=== PATIENT | female | born 1980 | race Two or more races ===

== ENCOUNTER 2017-09-21 12:37 | Emergency (ER) | payer SELFPAY ==
[2017-09-21 13:37] LABS: Hematocrit 36 % (35-47); Hemoglobin 11.9 g/dl (12.0-16.0); Mean Corpuscular HGB Conc 33 g/dl (31-36); Mean Corpuscular Hemoglobin 26 pg (27-31); Mean Corpuscular Volume 79 fL (80-97); Mean Platelet Volume 10 um3 (7.4-10.4); Red Cell Distribution Width 15 % (10.5-15); White Blood Count 3.9 10^3/ul (3.5-10.8)
[2017-09-21] MEDS ORDERED: NS 0.9% 1000 ML* 1,000 ML IV ONE (13:42)
[2017-09-21] MEDS ORDERED: Meclizine TAB* 12.5 MG PO ONE (13:42)
[2017-09-21] MEDS ORDERED: Ondansetron INJ* 2 MG/ML VIAL IV ONE (13:42)
[2017-09-21 13:47] LABS: Urine Bacteria Absent (Absent); Urine Bilirubin Negative (Negative); Urine Glucose Negative (Negative); Urine Nitrite Negative (Negative)
[2017-09-21 13:51] LABS: Troponin I 0.01 ng/mL (<0.04)
[2017-09-21 13:52] LABS: ALT 11 U/L (7-52); AST 14 U/L (13-39); Albumin 3.9 g/dL (3.2-5.2); Alkaline Phosphatase 52 U/L (34-104); Anion Gap 6 mmol/L (2-11); BUN/Creatinine Ratio 18.8 (8-20); Blood Urea Nitrogen 12 mg/dL (6-24); CO2 Carbon Dioxide 26 mmol/L (22-32); Calcium 9.3 mg/dL (8.6-10.3); Chloride 104 mmol/L (101-111); Globulin 3.1 g/dL (2-4); Glucose 88 mg/dL (70-100); Magnesium 1.8 mg/dL (1.9-2.7); Potassium 3.6 mmol/L (3.5-5.0); Sodium 136 mmol/L (133-145)
[2017-09-21 14:23] LABS: TSH (Thyroid Stimulating Horm) 1.44 mcIU/mL (0.34-5.60)
--- NOTE | 2017-09-21 14:27 | RAD ---
Indication: Syncope. Single frontal view of the chest performed at 1320 hours was reviewed. No prior study is available for comparison. No mediastinal shift is noted. Heart is of normal size and configuration. Lung wilde appear clear. IMPRESSION: NO ACTIVE CARDIOPULMONARY DISEASE IS NOTED.
[2017-09-21] MEDS ORDERED: Iohexol 350* (CONTRAST) 500 ML MDV IV ONE (14:36)
--- NOTE | 2017-09-21 15:29 | RAD ---
HISTORY: Syncope, fall, neck pain COMPARISONS: None TECHNIQUE: Multiple contiguous axial CT scans were obtained of the cervical spine without intravenous contrast, with coronal and sagittal multiplanar reformations. FINDINGS: BRAIN: The visualized brain is unremarkable CENTRAL CANAL: Evaluation of the central canal is limited on CT technique; however, there is no obvious canalicular mass or epidural hemorrhage. ALIGNMENT: There is straightening of the cervical lordosis. VERTEBRAL BODIES: The odontoid process is intact. The atlantoaxial intervals are symmetric. The vertebral bodies are normal in attenuation, without fracture. Incidentally noted are small dysraphic defects of the T1 vertebral body and of the C1 vertebral body. JOINTS: There is no subluxation or dislocation. MUSCULATURE: Unremarkable INTERVERTEBRAL DISCS: There is diffuse loss of intervertebral disc height. AXIAL IMAGES: C2-C3: There is no osseous neural foraminal narrowing or central canal stenosis. C3-C4: There is no osseous neural foraminal narrowing or central canal stenosis. C4-C5: There is no osseous neural foraminal narrowing or central canal stenosis. C5-C6: There is no osseous neural foraminal narrowing or central canal stenosis. C6-C7: There is no osseous neural foraminal narrowing or central canal stenosis. C7-T1: There is no osseous neural foraminal narrowing or central canal stenosis. SOFT TISSUES: The visualized soft tissues of the neck are unremarkable. The prevertebral fat stripe is preserved. OTHER: None. IMPRESSION: NO ACUTE OSSEOUS INJURY TO THE CERVICAL SPINE
--- NOTE | 2017-09-21 15:29 | RAD ---
HISTORY: Syncope, fall, headache COMPARISONS: None TECHNIQUE: Multiple contiguous axial CT scans were obtained of the head without intravenous contrast. FINDINGS: HEMORRHAGE/INFARCT: There is no hemorrhage or acute infarct. MASSES/SHIFT: There is no mass or shift. EXTRA-AXIAL SPACES: There are no extra-axial fluid collections. SULCI AND VENTRICLES: The sulci and ventricles are normal in size and position for the patient's stated age. CEREBRUM: There are no focal parenchymal abnormalities. BRAINSTEM: There are no focal parenchymal abnormalities. CEREBELLUM: There are no focal parenchymal abnormalities. VESSELS: The vessels are grossly normal. PARANASAL SINUSES: The paranasal sinuses are clear. ORBITS: The orbits are unremarkable. BONES AND SOFT TISSUE: No bone or soft tissue abnormalities are noted. OTHER: None IMPRESSION: NO ACUTE INTRACRANIAL PATHOLOGY.
--- NOTE | 2017-09-21 15:32 | RAD ---
HISTORY: Syncope, fall, headache, neck pain COMPARISONS: None TECHNIQUE: Multiple contiguous axial CT scans were obtained of the head and neck After the administration of nonionic intravenous contrast timed to the systemic arterial phase of contrast enhancement. Coronal and sagittal multiplanar reformations are submitted for review. Multiple 3-D maximum intensity projection reconstructions are also submitted for review. FINDINGS: CTA NECK: AORTIC ARCH: There is a normal three-vessel branching pattern of the aortic arch. There is no ostial or proximal stenosis of the cephalic great vessels. RIGHT VERTEBRAL ARTERY: The right vertebral artery is patent along its course, without stenosis. LEFT VERTEBRAL ARTERY: Evaluation of the left vertebral artery origin is limited by streak artifact from the contrast column. DOMINANCE: The vertebral arteries are codominant. RIGHT COMMON CAROTID ARTERY: The right common carotid artery is patent. The right carotid bifurcation occurs at C3-C4 RIGHT INTERNAL CAROTID ARTERY: There is no right internal carotid artery stenosis by NASCET criteria. There is no appreciable intimal flap or significant aneurysm formation to suggest dissection. RIGHT EXTERNAL CAROTID ARTERY: The right external carotid artery is unremarkable. LEFT COMMON CAROTID ARTERY: The left common carotid artery is patent. The left carotid bifurcation occurs at C3-C4 LEFT INTERNAL CAROTID ARTERY: There is no left internal carotid artery stenosis by NASCET criteria. There is no appreciable intimal flap or significant aneurysm formation to suggest dissection. LEFT EXTERNAL CAROTID ARTERY: The left external carotid artery is unremarkable. VENOUS CIRCULATION: The venous system is unremarkable. SALIVARY GLANDS: The parotid glands, submandibular glands, sublingual glands are normal. NASAL CAVITY/NASOPHARYNX: The nasal cavity and nasopharynx are normal. ORAL CAVITY/OROPHARYNX: The oral cavity is obscured by streak artifact from dental amalgam. The visualized oral cavity and oropharynx are unremarkable. LARYNGEAL APPARATUS/HYPOPHARYNX: The laryngeal apparatus and hypopharynx are normal. UPPER AIRWAY/UPPER ESOPHAGUS: The visualized upper airway and esophagus are normal. LUNG APICES: The lung apices are clear. THYROID GLAND: The thyroid gland is normal. LYMPH NODES: There is no lymphadenopathy by size criteria. BONES AND SOFT TISSUES: Incidentally noted are small dysraphic defects of C1 and T1 CTA HEAD: INTRACRANIAL CIRCULATION: There is no aneurysm, vascular malformation, occlusion, or stenosis of the visualized intracranial circulation. The anterior communicating artery complex is clear. Bilateral posterior communicating arteries are identified. VENOUS CIRCULATION: The venous system is unremarkable. PERFUSION: There is no obvious parenchymal perfusion deficit. HEMORRHAGE/INFARCT: There is no hemorrhage or acute infarct. MASSES/SHIFT: There is no mass or shift. EXTRA-AXIAL SPACES: There are no extra-axial fluid collections. SULCI AND VENTRICLES: The sulci and ventricles are normal in size and position for the patient's stated age. CEREBRUM: There are no focal parenchymal abnormalities. BRAINSTEM: There are no focal parenchymal abnormalities. CEREBELLUM: There are no focal parenchymal abnormalities. PARANASAL SINUSES: The paranasal sinuses are clear. ORBITS: The orbits are unremarkable. BONES AND SOFT TISSUE: No bone or soft tissue abnormalities are noted. OTHER: There is no abnormal enhancement. IMPRESSION: 1. NO INTERNAL CAROTID ARTERY STENOSIS BY NASCET CRITERIA. 2. NO ANEURYSM, VASCULAR MALFORMATION, OCCLUSION, OR STENOSIS OF THE VISUALIZED INTRACRANIAL CIRCULATION.. CPT II Codes: 3100F
--- NOTE | 2017-09-21 15:32 | RAD ---
INDICATION: Trauma, back pain. COMPARISON: There are no prior studies available for comparison. TECHNIQUE: Contiguous axial sections were obtained beginning above the T12 vertebra and continuing through the L5-S1 disc space. Images were reconstructed in the sagittal and coronal planes. FINDINGS: There is a mild lumbar scoliosis convex toward the right side. The vertebra are otherwise in normal alignment. No fracture is seen. There is no evidence for significant disc bulge or herniation. There is no evidence for spinal canal narrowing. There are prominent bilateral extrarenal pelvises likely representing normal variation. IMPRESSION: NO EVIDENCE FOR FRACTURE.
[2017-09-21] MEDS ORDERED: Acetaminophen TAB* 325 MG PO ONE (16:35)
[2017-09-21 16:47] VITALS: BP 108/71
--- NOTE | 2017-09-21 16:52 | ED ---
Polo Day Alfonso, scribed for Kymberly Cartagena MD on 09/21/17 at 1342 . Syncope/Near Syncope - HPI Summary HPI Summary: This patient is a 37 year old F BIBA to [facility] with a chief complaint of a syncopal episode while in an [place] class earlier today. She hit her head during the LOC. She reports having two other similar episodes in the last 3 months. The patient rates the aching pain 6/10 in severity. Symptoms aggravated by nothing. Symptoms alleviated by spontaneous resolution. Patient reports dizziness, headache, neck pain, and low back pain. Patient denies hearing loss, tinnitus, and cough. - History Of Current Complaint Chief Complaint: EDSyncope Time Seen by Provider: 09/21/17 13:04 Hx Obtained From: Patient Onset/Duration: Sudden Onset, Resolved, Other - earlier today Timing: Constant Context: Loss Of Consciousness Activity At Onset: Other - [place]ian class Associated Head Trauma: Yes Aggravating Factor(s): Nothing Alleviating Factor(s): Spontaneous Resolution Associated Signs And Symptoms: Other - dizziness, headache, neck pain, and low back pain. Patient denies hearing loss, tinnitus, and cough. Frequency: Ongoing Incidents Of Syncope For (in Mins/Days/Weeks/Years) - 3rd in 3 months - Allergies/Home Medications Allergies/Adverse Reactions: Allergies Allergy/AdvReac Type Severity Reaction Status Date / Time No Known Allergies Allergy Verified 09/21/17 12:51 Home Medications: Home Medications Ibuprofen [Advil] 400 mg PO BID PRN 09/21/17 [History Confirmed 09/21/17] Multiple Vitamins W/ Minerals [Multi-Vitamin Gummies] 2 chw PO DAILY 09/21/17 [ History Confirmed 09/21/17] Vitamin B Complex TAB* [Complex B-100*] 1 tab PO DAILY 09/21/17 [History Confirmed 09/21/17] PMH/Surg Hx/FS Hx/Imm Hx Opthamlomology History: Denies: Hx Legally Blind EENT History: Denies: Hx Deafness Infectious Disease History: No Infectious Disease History: Denies: Traveled Outside the [place] in Last 30 Days - Family History Known Family History: Positive: Cardiac Disease, Hypertension, Other - Cancer - Social History Lives: With Family Alcohol Use: None Substance Use Type: Reports: None Smoking Status (MU): Never Smoked Tobacco Review of Systems Negative: Fever Positive: Other - Negative hearing loss and tinnitus Negative: Cough Positive: Other - neck pain, and low back pain Neurological: Other - syncope, head trauma, dizziness, headache All Other Systems Reviewed And Are Negative: Yes Physical Exam - Summary Physical Exam Summary: General: Well appearing, no pain distress Skin: Warm, Skin Color Reflects Adequate Perfusion, Dry Eyes: EOMI, ANA ENT: Pharynx normal, TMs normal Neck: Supple, nontender Respiratory: CTA, breath sounds present, no rhonchi, no wheezes, no rales Cardiovascular: RRR, no murmur, no rub, no gallop Abdomen: Soft, nontender, Non-distended, no guarding, no rebound Bowel: Present Musculoskeletal: GISELLE, No edema, C-Collar applied Neuro: Sensory/motor intact, A&Ox3, CN intact 2-12 Psych: Affect/mood appropriate Triage Information Reviewed: Yes Vital Signs On Initial Exam: Initial Vitals Temp Pulse Resp BP Pulse Ox 98.3 F 61 15 112/72 100 09/21/17 12:49 09/21/17 12:49 09/21/17 12:49 09/21/17 12:49 09/21/17 12:49 Vital Signs Reviewed: Yes - Hume Coma Scale Coma Scale Total: 15 Diagnostics - Vital Signs Vital Signs Temp Pulse Resp BP Pulse Ox 09/21/17 13:31 100 09/21/17 13:00 54 15 101/62 99 09/21/17 12:51 66 100 09/21/17 12:50 112/72 09/21/17 12:49 98.3 F 61 15 112/72 100 - Laboratory Lab Results: Lab Results 09/21/17 09/21/17 09/21/17 Range/Units 13:15 13:15 13:27 WBC 3.9 (3.5-10.8) 10^3/ul RBC 4.50 (4.0-5.4) 10^6/ul Hgb 11.9 L (12.0-16.0) g/dl Hct 36 (35-47) % MCV 79 L (80-97) fL MCH 26 L (27-31) pg MCHC 33 (31-36) g/dl RDW 15 (10.5-15) % Plt Count 142 L (150-450) 10^3/ul MPV 10 (7.4-10.4) um3 Neut % (Auto) 49.5 (38-83) % Lymph % (Auto) 36.6 (25-47) % Wallace % (Auto) 11.1 H (1-9) % Eos % (Auto) 2.2 (0-6) % Baso % (Auto) 0.6 (0-2) % Absolute Neuts (auto) 2.0 (1.5-7.7) 10^3/ul Absolute Lymphs (auto) 1.4 (1.0-4.8) 10^3/ul Absolute Monos (auto) 0.4 (0-0.8) 10^3/ul Absolute Eos (auto) 0.1 (0-0.6) 10^3/ul Absolute Basos (auto) 0 (0-0.2) 10^3/ul Absolute Nucleated RBC 0 10^3/ul Nucleated RBC % 0.1 Sodium 136 (133-145) mmol/L Potassium 3.6 (3.5-5.0) mmol/L Chloride 104 (101-111) mmol/L Carbon Dioxide 26 (22-32) mmol/L Anion Gap 6 (2-11) mmol/L BUN 12 (6-24) mg/dL Creatinine 0.64 (0.51-0.95) mg/dL Est GFR ( Amer) 135.0 (>60) Est GFR (Non-Af Amer) 105.0 (>60) BUN/Creatinine Ratio 18.8 (8-20) Glucose 88 (70-100) mg/dL Calcium 9.3 (8.6-10.3) mg/dL Magnesium 1.8 L (1.9-2.7) mg/dL Total Bilirubin 0.50 (0.2-1.0) mg/dL AST 14 (13-39) U/L ALT 11 (7-52) U/L Alkaline Phosphatase 52 (34-104) U/L Troponin I 0.01 (<0.04) ng/mL Total Protein 7.0 (6.4-8.9) g/dL Albumin 3.9 (3.2-5.2) g/dL Globulin 3.1 (2-4) g/dL Albumin/Globulin Ratio 1.3 (1-3) TSH 1.44 (0.34-5.60) mcIU/mL Beta HCG, Quant < 0.60 mIU/mL Urine Color Yellow Urine Appearance Clear Urine pH 6.0 (5-9) Ur Specific [place] 1.009 L (1.010-1.030) Urine Protein Negative (Negative) Urine Ketones Negative (Negative) Urine Blood Negative (Negative) Urine Nitrate Negative (Negative) Urine Bilirubin Negative (Negative) Urine Urobilinogen Negative (Negative) Ur Leukocyte Esterase Trace H (Negative) Urine WBC (Auto) Trace(0-5/hpf) (Absent) Urine RBC (Auto) 1+(3-5/hpf) H (Absent) Ur Squamous Epith Cells Present H (Absent) Urine Bacteria Absent (Absent) Urine Glucose Negative (Negative) Result Diagrams: 09/21/17 13:15 09/21/17 13:15 Lab Statement: Any lab studies that have been ordered have been reviewed, and results considered in the medical decision making process. - Radiology CXR Radiology Interpretation Completed By: Radiologist - NO ACTIVE CARDIOPULMONARY DISEASE IS NOTED. ED physician has reviewed this radiology report and agrees. - CT CTA Head CT Interpretation Completed By: Radiologist - 1. NO INTERNAL CAROTID ARTERY STENOSIS BY NASCET CRITERIA. 2. NO ANEURYSM, VASCULAR MALFORMATION, OCCLUSION, OR STENOSIS OF THE VISUALIZED INTRACRANIAL CIRCULATION. ED physician has reviewed this radiology report and agrees. CT Brain CT Interpretation Completed By: Radiologist - NO ACUTE INTRACRANIAL PATHOLOGY. ED physician has reviewed this radiology report and agrees. CT C-Spine CT Interpretation Completed By: Radiologist - NO ACUTE OSSEOUS INJURY TO THE CERVICAL SPINE. ED physician has reviewed this radiology report and agrees. CT L-Spine CT Interpretation Completed By: Radiologist - NO EVIDENCE FOR FRACTURE. ED physician has reviewed this radiology report and agrees. - EKG 1326 Cardiac Rate: NL - BPM 65 EKG Rhythm: Sinus Rhythm EKG Interpretation: NAC Course/Dx Course Of Treatment: 37 yo female with vertigo and fainting. labs ct's all normal long discussion with pt and family will do close f/u with [facility] - Diagnoses Provider Diagnoses: Vertigo Discharge - Discharge Plan Condition: Stable Disposition: HOME Prescriptions: Meclizine TAB* [Antivert 12.5 TAB*] 25 mg PO TID PRN #12 tab PRN Reason: Vertigo Patient Education Materials: Vertigo (ED) Referrals: Cristina Lance MD [Primary Care Provider] - 3 Days Additional Instructions: RETURN TO THE EMERGENCY DEPARTMENT FOR CHANGING OR WORSENING SYMPTOMS. The documentation as recorded by the Polo reis Alfonso accurately reflects the service I personally performed and the decisions made by me, Kymberly Cartagena MD.
== END 2017-09-21 17:01 | disposition home or self-care (01) ==
LOC: ED 12:37
DX: R42 Dizziness and giddiness (principal)
CPT/HCPCS: 36415; 70450; 70496; 70498; 71010; 72125; 72131; 80053; 81003; 81015; 83735; 84443; 84484; 84702; 85025; 87086; 93005; 96360; 96374; 96375; 99283; A9270-GY; J2405; Q9967

== ENCOUNTER 2018-01-05 17:58 | Emergency (ER) | payer OTHER ==
--- NOTE | 2018-01-05 18:57 | RAD ---
INDICATION: Intracranial injury COMPARISON: CT brain September 21, 2017 TECHNIQUE: Noncontrast axial source images were acquired from the skull base to the vertex. FINDINGS: Ventricles/sulci: The ventricles and cisterns are normal in size and configuration for age. Brain parenchyma: There is no focal parenchymal finding, evidence of intracranial mass, or intracranial mass effect. Intracranial hemorrhage:None. Extra-axial spaces: There are no abnormal extra axial fluid collections or evidence of extra-axial mass. Calvarium: There is no calvarial fracture or other calvarial abnormality. Scalp: There is no evidence of scalp or extracalvarial soft tissue abnormality. Paranasal sinuses/mastoid: The paranasal sinuses and mastoid air cells are clear. Other: None. IMPRESSION: NO ACUTE INTRACRANIAL FINDINGS.
[2018-01-05 19:11] LABS: ABS Basophils 0 10^3/ul (0-0.2); ABS Eosinophils 0.1 10^3/ul (0-0.6); ABS Lymphocytes 1.5 10^3/ul (1.0-4.8); ABS Monocytes 0.3 10^3/ul (0-0.8); ABS Neutrophils 3.2 10^3/ul (1.5-7.7); ABS Nucleated RBC 0 10^3/ul; Eosinophil % 1.3 % (0-6); Hematocrit 38 % (35-47); Hemoglobin 12.7 g/dl (12.0-16.0); Lymphocyte % 29.4 % (25-47); Mean Corpuscular HGB Conc 33 g/dl (31-36); Mean Corpuscular Hemoglobin 26 pg (27-31); Mean Corpuscular Volume 79 fL (80-97); Mean Platelet Volume 10 um3 (7.4-10.4); Nucleated Red Blood Cells % 0.2; Platelet Count 174 10^3/ul (150-450); Red Blood Count 4.84 10^6/ul (4.0-5.4); Red Cell Distribution Width 16 % (10.5-15); White Blood Count 5.1 10^3/ul (3.5-10.8)
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
--- NOTE | 2018-01-05 20:32 | RAD ---
INDICATION: Facial injury COMPARISON: None TECHNIQUE: Axial source images were acquired from the vertex of the mandible through the orbits. Coronal and sagittal reconstructed images were acquired. FINDINGS: Bones: There is no acute facial bone fracture. Orbits: The globes and intraconal structures appear intact. The optic nerves are symmetric. Extraocular muscles appear normal. There is no intraconal inflammatory change or retrobulbar mass.. Paranasal sinuses: There is minor ethmoid sinus mucosal thickening. Brain: There are no acute abnormalities of the visualized brain parenchyma. Soft tissues: Normal Other: None The visualized soft tissue elements about the neck appear normal. IMPRESSION: NO ACUTE FACIAL BONE FRACTURE.
[2018-01-05] MEDS: Ibuprofen TAB* 800 MG PO ONE (20:36)
[2018-01-05] MEDS: Ondansetron ODT TAB* 4 MG PO ONE (21:40)
[2018-01-05 23:35] VITALS: BP 117/77
== END 2018-01-05 22:07 | disposition home or self-care (01) ==
LOC: ED 17:58
DX: R51 Headache (principal); S06.0X1A Concussion with loss of consciousness of 30 minutes or less, initial encounter; W10.9XXA Fall (on) (from) unspecified stairs and steps, initial encounter; Y92.9 Unspecified place or not applicable; R55 Syncope and collapse
CPT/HCPCS: 36415; 70450; 70486; 80053; 83605; 83735; 84443; 84484; 85025; 93005; 99283; A9270-GY

== ENCOUNTER 2018-08-13 18:08 | Emergency (ER) | payer OTHER ==
[2018-08-13] MEDS ORDERED: NS 0.9% 1000 ML* 1,000 ML IV ONE (18:23)
--- NOTE | 2018-08-13 18:29 | ED ---
Neurological HPI - HPI Summary HPI Summary: This patient is a 38 year old F presenting to [facility] accompanied by with a chief complaint of R-sided numbness that began approximately 1 hour ago. Pt states that neurological deficit began status post fall. Pt states she fell between her bed and dresser, and hit the right side of her head. Pt states she lost consciousness. The patient rates the pain 8/10 in severity. Symptoms aggravated by nothing. Symptoms alleviated by nothing. Patient reports cold feeling in R hand and uneven smile. - History of Current Complaint Chief Complaint: EDNeurologicalDeficit Stated Complaint: SYNCOPE, HEAD RIGHT SIDE NUMBNESS Time Seen by Provider: 08/13/18 18:23 Hx Obtained From: Patient Onset/Duration: Sudden Onset, Started hours ago, Still Present Timing: Constant Onset Severity: Severe Current Severity: Severe Pain Intensity: 8 Pain Scale Used: 0-10 Numeric Character: Numbness/Tingling Episode Lasting: Unknown Number of Episodes: 1 Syncope Context: Witnessed Frequency: Episodes x___ - 1 Aggravating: Nothing Alleviating: Nothing - Allergy/Home Medications Allergies/Adverse Reactions: Allergies Allergy/AdvReac Type Severity Reaction Status Date / Time No Known Allergies Allergy Verified 09/21/17 12:51 PMH/Surg Hx/FS Hx/Imm Hx Previously Healthy: Yes Endocrine/Hematology History: Denies: Hx Anticoagulant Therapy, Hx Diabetes Cardiovascular History: Denies: Hx Hypertension Sensory History: Denies: Hx Legally Blind, Hx Deafness Opthamlomology History: Denies: Hx Legally Blind - Surgical History Surgery Procedure, Year, and Place: n/a Infectious Disease History: No Infectious Disease History: Denies: Traveled Outside the [place] in Last 30 Days - Family History Known Family History: Positive: Cardiac Disease, Hypertension, Other - Cancer - Social History Occupation: Unemployed Lives: With Family Alcohol Use: None Hx Substance Use: No Substance Use Type: Reports: None Hx Tobacco Use: No Smoking Status (MU): Never Smoked Tobacco Review of Systems Negative: Fever Neurological: Other - Positive cold feeling in R hand Positive: Numbness All Other Systems Reviewed And Are Negative: Yes Physical Exam - Summary Physical Exam Summary: GENERAL: Patient is a well-developed and nourished F who is lying comfortable in the stretcher. Patient is not in any acute respiratory distress. HEAD AND FACE: Normocephalic EYES: PERRLA, EOMI x 2. EARS: Hearing grossly intact. MOUTH: Oropharynx within normal limits. NECK: Supple, trachea is midline, no adenopathy, no JVD, no carotid bruit. CHEST: Symmetric, no tenderness at palpation LUNGS: Clear to auscultation bilaterally. No wheezing or crackles. CVS: Regular rate and rhythm, S1 and S2 present, no murmurs or gallops appreciated. ABDOMEN: Soft, non-tender. Bowel sounds are normal. No abdominal abnormal pulsations. EXTREMITIES: Full ROM in all major joints, no edema, no cyanosis or clubbing. Strength in RUE is 5/5 NEURO: Alert and oriented x 3. No acute neurological deficits. Speech is normal and follows commands. SKIN: Dry and warm Triage Information Reviewed: Yes Vital Signs On Initial Exam: Initial Vitals Temp Pulse Resp BP Pulse Ox 97 F 76 18 133/91 97 08/13/18 18:17 08/13/18 18:17 08/13/18 18:17 08/13/18 18:17 08/13/18 18:17 Vital Signs Reviewed: Yes Diagnostics - Vital Signs Vital Signs Temp Pulse Resp BP Pulse Ox 08/13/18 18:17 97 F 76 18 133/91 97 - Laboratory Result Diagrams: 08/13/18 19:05 08/13/18 19:05 Lab Statement: Any lab studies that have been ordered have been reviewed, and results considered in the medical decision making process. - CT Brain CT CT Interpretation Completed By: Radiologist - Brain CT reveals, per radiologist , no intracranial bleed, suspicious mass, or mass effect. Ventricles appear unremarkable. ED physician has reviewed this radiology report. - EKG 1840 Cardiac Rate: NL EKG Rhythm: Sinus Rhythm - 78 BPM EKG Interpretation: Nml axis Course/Dx - Course Course Of Treatment: This patient is a 38 year old F presenting to [facility] accompanied by with a chief complaint of R-sided numbness that began approximately 1 hour ago. I was called in triage, pt fell, hit her head, and lost consciousness. Pt was unable to move R side. I called a code mendoza on her. Pt was rushed to CT and then to room 3. Upon re-evaluation pt had full movement of her extremities. Upon further investigation, it was revealed that these symptoms have happened before. There was a language barrier. An EKG taken at 1840 reveals nml sinus rhythm at 78 BPM and nml axis. Brain CT reveals, per radiologist, no intracranial bleed, suspicious mass, or mass effect. Ventricles appear unremarkable. Pt will be signed out to Dr. Guillermo upon shift change pending lab work and disposition. Pt is agreeable with this plan. - Diagnoses Provider Diagnoses: Right sided weakness Discharge - Sign-Out/Discharge Documenting (check all that apply): Sign-Out Patient Signing out patient TO: Adryan Guillermo - Upon shift change pending lab work and disposition - Discharge Plan Condition: Good Disposition: HOME Patient Education Materials: Syncope (ED) Referrals: Jose Ellis DO [Primary Care Provider] - Additional Instructions: If the shoulder is really bothering you over the next few days you should return for an x ray. - Billing Disposition and Condition Condition: GOOD Disposition: Home - Attestation Statements Document Initiated by Scribe: Yes Documenting Scribe: Letty Bueno Provider For Whom Scribe is Documenting (Include Credential): Lalo Bai MD Scribe Attestation: I, Letty Bueno, scribed for Lalo Bai MD on 08/14/18 at 2352. Scribe Documentation Reviewed: Yes Provider Attestation: The documentation as recorded by the [email or web address] fraser accurately reflects the service I personally performed and the decisions made by me, Lalo Bai MD
--- NOTE | 2018-08-13 18:33 | RAD ---
EXAM: CT Head Without Intravenous Contrast CLINICAL HISTORY: 38 years old, female; Signs and symptoms; Weakness, extremity; Right; Additional info: Neurological changes/code tyler TECHNIQUE: Axial computed tomography images of the head/brain without intravenous contrast. All CT scans at this facility use at least one of these dose optimization techniques: automated exposure control; mA and/or kV adjustment per patient size (includes targeted exams where dose is matched to clinical indication); or iterative reconstruction. COMPARISON: No relevant prior studies available. FINDINGS: Brain: Unremarkable. No hemorrhage. No significant white matter disease. No edema. Ventricles: No intracranial bleed, suspicious mass, or mass effect. Ventricles appear unremarkable. Bones/joints: Unremarkable. No acute fracture. Soft tissues: Unremarkable. Sinuses: Unremarkable as visualized. No acute sinusitis. Mastoid air cells: Unremarkable as visualized. No mastoid effusion. IMPRESSION: No intracranial bleed, suspicious mass, or mass effect. Ventricles appear unremarkable.
[2018-08-13 19:13] LABS: ABS Basophils 0 10^3/ul (0-0.2); ABS Eosinophils 0 10^3/ul (0-0.6); ABS Lymphocytes 1.5 10^3/ul (1.0-4.8); ABS Monocytes 0.4 10^3/ul (0-0.8); ABS Neutrophils 2.5 10^3/ul (1.5-7.7); ABS Nucleated RBC 0 10^3/ul; Eosinophil % 0.1 % (0-6); Hematocrit 37 % (35-47); Hemoglobin 12.3 g/dl (12.0-16.0); Lymphocyte % 34.1 % (25-47); Mean Corpuscular HGB Conc 33 g/dl (31-36); Mean Corpuscular Hemoglobin 26 pg (27-31); Mean Corpuscular Volume 77 fL (80-97); Mean Platelet Volume 9.5 um3 (7.4-10.4); Nucleated Red Blood Cells % 0.1; Platelet Count 135 10^3/ul (150-450); Red Blood Count 4.81 10^6/ul (4.00-5.40); Red Cell Distribution Width 17 % (10.5-15); White Blood Count 4.5 10^3/ul (3.5-10.8)
[2018-08-13 19:20] LABS: INR 1.03 (0.77-1.02)
[2018-08-13] MEDS ORDERED: Ketorolac INJ* 30 MG/ML 1 ML VIAL IV PUSH ONE (19:37)
--- NOTE | 2018-08-13 19:42 | PN ---
Progress Note - Progress Note Date of Service: 08/13/18 Note: SIGN-OUT RECEIVED FROM DR. SHEPARD AT SHIFT CHANGE PENDING WORK-UP AND DISPO. AT 1939: ED PROVIDER AT BEDSIDE Pt is a 38 y/o F presenting to ED with c/o dizziness onset DIRECTOR INDEX while arguing with her . DIAGNOSTICS: COT: DX: DISPO: This is scribe, Andrei Holly, documenting for attending Dr. Adryan Guillermo MD. I, Dr. Guillermo, personally performed the services described in this documentation as scribed in my presence and it is both accurate and complete.
[2018-08-13] MEDS ORDERED: LORazepam TAB(*) 1 MG PO ONE (19:45)
[2018-08-13] MEDS ORDERED: Ibuprofen TAB* 400 MG PO ONE (19:46)
[2018-08-13 20:49] VITALS: BP 129/74
--- NOTE | 2018-08-14 07:58 | RAD ---
Indication: Neurologic changes, code tyler. Single frontal view of the chest performed at 1929 hours was reviewed. Comparison is made with previous exam dated September 21, 2017. No mediastinal shift is noted. Heart is of normal size and configuration. Lung wilde appear clear. IMPRESSION: NO ACTIVE CARDIOPULMONARY DISEASE IS NOTED. R1
== END 2018-08-13 20:50 | disposition home or self-care (01) ==
LOC: ED 18:08
DX: R55 Syncope and collapse (principal); R53.1 Weakness
CPT/HCPCS: 36415; 70450; 71045; 80053; 80061; 83605; 84484; 84702; 85025; 85610; 85730; 86850; 86900; 86901; 93005; 96374; 99283; A9270-GY

== ENCOUNTER 2019-07-30 18:44 | Observation (INO) | payer OTHER ==
[2019-07-30] MEDS ORDERED: Ondansetron ODT TAB* 4 MG PO ONE (19:56)
[2019-07-30] MEDS ORDERED: Acetaminophen TAB* 325 MG PO ONE (19:56)
[2019-07-30 19:57] LABS: ABS Lymphocytes 1.3 10^3/ul (1.0-4.8); ABS Monocytes 0.5 10^3/ul (0-0.8); ABS Neutrophils 5.8 10^3/ul (1.5-7.7); Hematocrit 35 % (35-47); Hemoglobin 11.6 g/dL (12.0-16.0); Lymphocyte % 17.2 %; Mean Corpuscular HGB Conc 33 g/dL (31-36); Mean Corpuscular Hemoglobin 25 pg (27-31); Mean Corpuscular Volume 75 fL (80-97); Mean Platelet Volume 9.3 fL (7.4-10.4); Nucleated Red Blood Cells % 0.1; Platelet Count 143 10^3/uL (150-450); Red Blood Count 4.65 10^6 /uL (3.70-4.87); Red Cell Distribution Width 17 % (10-15); White Blood Count 7.6 10^3/uL (3.5-10.8)
[2019-07-30 20:17] LABS: ALT 18 U/L (7-52); AST 15 U/L (13-39); Albumin 4.7 g/dL (3.2-5.2); Albumin/Globulin Ratio 1.5 (1-3); Alkaline Phosphatase 68 U/L (34-104); Anion Gap 8 mmol/L (2-11); BUN/Creatinine Ratio 19.4 (8-20); Blood Urea Nitrogen 14 mg/dL (6-24); CO2 Carbon Dioxide 23 mmol/L (22-32); Calcium 9.4 mg/dL (8.6-10.3); Chloride 104 mmol/L (101-111); EGFR African American 109.7 (>60); EGFR Non-African American 90.7 (>60); Globulin 3.2 g/dL (2-4); Glucose 105 mg/dL (70-100); Potassium 3.8 mmol/L (3.5-5.0); Sodium 135 mmol/L (135-145); Total Protein 7.9 g/dL (6.4-8.9)
[2019-07-30 20:23] LABS: HCG Pregnancy < 0.60 mIU/mL
[2019-07-30 20:30] LABS: Urine Appearance Clear; Urine Bacteria Absent (Absent); Urine Bilirubin Negative (Negative); Urine Blood Negative (Negative); Urine Color Yellow; Urine Glucose Negative (Negative); Urine Ketones Negative (Negative); Urine Nitrite Negative (Negative); Urine Protein Negative (Negative); Urine Red Blood Cell Absent (Absent); Urine Specific Gravity 1.018 (1.010-1.030); Urine Squamous Epithelial Cell Present (Absent); Urine Urobilinogen Negative (Negative); Urine White Blood Cell 1+(6-10/hpf) (Absent)
[2019-07-30 20:45] LABS: C Reactive Protein 46.03 mg/L (<8.01)
[2019-07-30] MEDS ORDERED: NS 0.9% 1000 ML** 1,000 ML IV ONE (22:46)
[2019-07-30] MEDS ORDERED: Ondansetron INJ* 2 MG/ML VIAL IV ONE (22:46)
[2019-07-30] MEDS ORDERED: Morphine 4 MG/ML VIAL (1 ml) 4 MG/ML VIAL IV ONE (22:46)
[2019-07-30] MEDS ORDERED: Ibuprofen ADULT LIQ* 600 MG/30 ML UDC PO ONE (22:48)
--- NOTE | 2019-07-30 22:48 | ED ---
Abdominal Pain/Female - HPI Summary HPI Summary: Patient complains of sudden onset right lower quadrant and right upper quadrant pain, low right-sided back pain, fever, chills, nausea starting 3 AM this morning. Patient states history of same pain every couple months. Patient has been diagnosed with "nervous stomach". Symptoms are worse with food and movement. Denies cough, sore throat, CP, SOB, V/D, change in urine, change in BM, vaginal symptoms. Medical history is TIA, syncope, migraines. Abdominal surgical history is none. - History of Current Complaint Chief Complaint: EDAbdPain Stated Complaint: ABD PAIN PER Time Seen by Provider: 07/30/19 22:36 Hx Obtained From: Patient, Family/Assistant Professor Of Art Onset/Duration: Sudden Onset, Lasting Hours Timing: Constant Severity Initially: Moderate Severity Currently: Severe Pain Intensity: 8 Pain Scale Used: 0-10 Numeric Location: Discrete At: RUQ, Discrete At: RLQ Radiates: Yes Radiates to: Back Character: Sharp, Dull, Cramping Aggravating Factor(s): Food, Movement Alleviating Factor(s): Nothing Associated Signs and Symptoms: Positive: Back Pain, Nausea Allergies/Adverse Reactions: Allergies Allergy/AdvReac Type Severity Reaction Status Date / Time No Known Allergies Allergy Verified 09/21/17 12:51 PMH/Surg Hx/FS Hx/Imm Hx Endocrine/Hematology History: Denies: Hx Anticoagulant Therapy, Hx Diabetes Cardiovascular History: Denies: Hx Hypertension History: Denies: Hx Dialysis Sensory History: Denies: Hx Legally Blind, Hx Deafness Opthamlomology History: Denies: Hx Legally Blind EENT History: Denies: Hx Deafness Neurological History: Denies: Hx Dementia - Surgical History Surgery Procedure, Year, and Place: n/a Infectious Disease History: No Infectious Disease History: Denies: Traveled Outside the [place] in Last 30 Days - Family History Known Family History: Positive: Cardiac Disease, Hypertension, Other - Cancer - Social History Alcohol Use: None Hx Substance Use: No Substance Use Type: Reports: None Hx Tobacco Use: No Smoking Status (MU): Never Smoked Tobacco Review of Systems Constitutional: Negative Eyes: Negative ENT: Negative Cardiovascular: Negative Respiratory: Negative Positive: Abdominal Pain, Nausea Genitourinary: Negative Musculoskeletal: Negative Skin: Negative Neurological: Negative Psychological: Normal All Other Systems Reviewed And Are Negative: Yes Physical Exam - Summary Physical Exam Summary: Patient tender to palpation right lower quadrant, right upper quadrant, suprapubically. Abdominal exam otherwise unremarkable. No pain with palpation of lower right-sided back. Triage Information Reviewed: Yes Vital Signs On Initial Exam: Initial Vitals Temp Pulse Resp BP Pulse Ox 99.4 F 97 18 126/77 100 07/30/19 18:50 07/30/19 18:50 07/30/19 18:50 07/30/19 18:50 07/30/19 18:50 Vital Signs Reviewed: Yes Appearance: Positive: Well-Appearing Skin: Positive: Warm Head/Face: Positive: Normal Head/Face Inspection Eyes: Positive: Normal Neck: Positive: Supple Respiratory/Lung Sounds: Positive: Clear to Auscultation Cardiovascular: Positive: Normal Abdomen Description: Positive: Other: Musculoskeletal: Positive: Normal Neurological: Positive: Normal Psychiatric: Positive: Normal AVPU Assessment: Alert - [place] Coma Scale Best Eye Response: 4 - Spontaneous Best Motor Response: 6 - Obeys Commands Best Verbal Response: 5 - Oriented Coma Scale Total: 15 Diagnostics - Vital Signs Vital Signs Temp Pulse Resp BP Pulse Ox 07/30/19 20:56 100.6 F 92 18 116/59 98 07/30/19 19:29 99.5 F 07/30/19 18:50 99.4 F 97 18 126/77 100 - Laboratory Lab Results: Lab Results 07/30/19 07/30/19 07/30/19 Range/Units 19:43 19:49 19:49 WBC 7.6 (3.5-10.8) 10^3/uL RBC 4.65 (3.70-4.87) 10^6 /uL Hgb 11.6 L (12.0-16.0) g/dL Hct 35 (35-47) % MCV 75 L (80-97) fL MCH 25 L (27-31) pg MCHC 33 (31-36) g/dL RDW 17 H (10-15) % Plt Count 143 L (150-450) 10^3/uL MPV 9.3 (7.4-10.4) fL Neut % (Auto) 76.2 % Lymph % (Auto) 17.2 % Mitchell % (Auto) 6.1 % Eos % (Auto) 0.0 % Baso % (Auto) 0.5 % Absolute Neuts (auto) 5.8 (1.5-7.7) 10^3/ul Absolute Lymphs (auto) 1.3 (1.0-4.8) 10^3/ul Absolute Monos (auto) 0.5 (0-0.8) 10^3/ul Absolute Eos (auto) 0.0 (0-0.6) 10^3/ul Absolute Basos (auto) 0.0 (0-0.2) 10^3/ul Absolute Nucleated RBC 0.0 10^3/ul Nucleated RBC % 0.1 Sodium 135 (135-145) mmol/L Potassium 3.8 (3.5-5.0) mmol/L Chloride 104 (101-111) mmol/L Carbon Dioxide 23 (22-32) mmol/L Anion Gap 8 (2-11) mmol/L BUN 14 (6-24) mg/dL Creatinine 0.72 (0.51-0.95) mg/dL Est GFR ( Amer) 109.7 (>60) Est GFR (Non-Af Amer) 90.7 (>60) BUN/Creatinine Ratio 19.4 (8-20) Glucose 105 H (70-100) mg/dL Lactic Acid 1.0 (0.5-2.0) mmol/L Calcium 9.4 (8.6-10.3) mg/dL Total Bilirubin 0.50 (0.2-1.0) mg/dL AST 15 (13-39) U/L ALT 18 (7-52) U/L Alkaline Phosphatase 68 (34-104) U/L C-Reactive Protein 46.03 H (<8.01) mg/L Total Protein 7.9 (6.4-8.9) g/dL Albumin 4.7 (3.2-5.2) g/dL Globulin 3.2 (2-4) g/dL Albumin/Globulin Ratio 1.5 (1-3) Lipase 74 (11.0-82.0) U/L Beta HCG, Quant < 0.60 mIU/mL Urine Color Urine Appearance Urine pH (5-9) Ur Specific [place] (1.010-1.030) Urine Protein (Negative) Urine Ketones (Negative) Urine Blood (Negative) Urine Nitrate (Negative) Urine Bilirubin (Negative) Urine Urobilinogen (Negative) Ur Leukocyte Esterase (Negative) Urine WBC (Auto) (Absent) Urine RBC (Auto) (Absent) Ur Squamous Epith Cells (Absent) Urine Bacteria (Absent) Urine Glucose (Negative) 07/30/19 Range/Units 19:55 WBC (3.5-10.8) 10^3/uL RBC (3.70-4.87) 10^6 /uL Hgb (12.0-16.0) g/dL Hct (35-47) % MCV (80-97) fL MCH (27-31) pg MCHC (31-36) g/dL RDW (10-15) % Plt Count (150-450) 10^3/uL MPV (7.4-10.4) fL Neut % (Auto) % Lymph % (Auto) % Mitchell % (Auto) % Eos % (Auto) % Baso % (Auto) % Absolute Neuts (auto) (1.5-7.7) 10^3/ul Absolute Lymphs (auto) (1.0-4.8) 10^3/ul Absolute Monos (auto) (0-0.8) 10^3/ul Absolute Eos (auto) (0-0.6) 10^3/ul Absolute Basos (auto) (0-0.2) 10^3/ul Absolute Nucleated RBC 10^3/ul Nucleated RBC % Sodium (135-145) mmol/L Potassium (3.5-5.0) mmol/L Chloride (101-111) mmol/L Carbon Dioxide (22-32) mmol/L Anion Gap (2-11) mmol/L BUN (6-24) mg/dL Creatinine (0.51-0.95) mg/dL Est GFR ( Amer) (>60) Est GFR (Non-Af Amer) (>60) BUN/Creatinine Ratio (8-20) Glucose (70-100) mg/dL Lactic Acid (0.5-2.0) mmol/L Calcium (8.6-10.3) mg/dL Total Bilirubin (0.2-1.0) mg/dL AST (13-39) U/L ALT (7-52) U/L Alkaline Phosphatase (34-104) U/L C-Reactive Protein (<8.01) mg/L Total Protein (6.4-8.9) g/dL Albumin (3.2-5.2) g/dL Globulin (2-4) g/dL Albumin/Globulin Ratio (1-3) Lipase (11.0-82.0) U/L Beta HCG, Quant mIU/mL Urine Color Yellow Urine Appearance Clear Urine pH 7.0 (5-9) Ur Specific [place] 1.018 (1.010-1.030) Urine Protein Negative (Negative) Urine Ketones Negative (Negative) Urine Blood Negative (Negative) Urine Nitrate Negative (Negative) Urine Bilirubin Negative (Negative) Urine Urobilinogen Negative (Negative) Ur Leukocyte Esterase 2+ A (Negative) Urine WBC (Auto) 1+(6-10/hpf) A (Absent) Urine RBC (Auto) Absent (Absent) Ur Squamous Epith Cells Present A (Absent) Urine Bacteria Absent (Absent) Urine Glucose Negative (Negative) Result Diagrams: 07/30/19 19:43 07/30/19 19:49 Lab Statement: Any lab studies that have been ordered have been reviewed, and results considered in the medical decision making process. Abdominal Pain Fem Course/Dx - Course Course Of Treatment: Patient complains of sudden onset right lower quadrant and right upper quadrant pain, low right-sided back pain, fever, chills, nausea starting 3 AM this morning. Patient states history of same pain every couple months. Patient has been diagnosed with "nervous stomach". Symptoms are worse with food and movement. Denies cough, sore throat, CP, SOB, V/D, change in urine, change in BM, vaginal symptoms. Medical history is TIA, syncope, migraines. Abdominal surgical history is none. Febrile at 100.9. Resolved with Tylenol. Heart rate between 90 and 100. Vital signs otherwise within normal limits. Labs unremarkable. Transvaginal ultrasound positive for hypoechoic lesions on both ovaries, likely ovarian cysts. Ultrasound of gallbladder positive for possible space-occupying lesion on liver, similar to 2018. CT abdomen and pelvis positive for possible early acute appendicitis. Admitted to surgery. - Diagnoses Provider Diagnoses: Ovarian cyst, Liver cyst Discharge ED - Sign-Out/Discharge Documenting (check all that apply): Patient Departure - Discharge Plan Condition: Stable Disposition: ADMITTED TO [facility] Referrals: Jose Ellis DO [Primary Care Provider] - - Billing Disposition and Condition Condition: STABLE Disposition: Admitted to [facility]
[2019-07-31] MEDS ORDERED: Iohexol 300* (CONTRAST) 10 ML SDV IV ONE ×2 (02:29→02:32)
[2019-07-31] MEDS ORDERED: NS 0.9% 1000 ML** 1,000 ML IV ONE (03:20)
[2019-07-31] MEDS ORDERED: Piperacillin/Tazobac ADVAN(*) 3.375 GM in NS 0.9% 100 ML* 100 ML IVPB ONE (03:54)
[2019-07-31] MEDS ORDERED: Acetaminophen TAB* 325 MG PO PRN (03:56)
[2019-07-31] MEDS ORDERED: Morphine 4 MG/ML VIAL (1 ml) 4 MG/ML VIAL IV ONE (04:00)
[2019-07-31] MEDS: HYDROmorphone INJ1* 1 MG/ML SYRINGE IV SLOW PU PRN ×3 (05:44→14:12)
[2019-07-31] MEDS: NS 0.9% 1000 ML** 1,000 ML IV SCH ×4 (05:48→19:09)
[2019-07-31] MEDS ORDERED: Influenza VAC *QUAD* 2019-20* 0.5 ML SYRINGE IM ONE (09:00)
--- NOTE | 2019-07-31 10:03 | HP ---
CC: [facility] ADMISSION HISTORY AND PHYSICAL: DATE OF ADMISSION: 07/31/19 REASON FOR ADMISSION: Right lower quadrant abdominal pain. HISTORY OF PRESENT ILLNESS: Ms. Jennifer Galindo is a very pleasant 39-year-old woman who around 3 o'clock in the morning on Tuesday a.m. woke up with right- sided abdominal discomfort. This was not associated with fever. She did not have anything unusual to eat the night before and the pain seemed to be worse with movement. She had no change in her urinary habits. She had no diarrhea or vaginal symptoms. She has a history of migraines. She has had no prior abdominal surgery in the past. She had no vomiting. In the emergency room, she was noted to be afebrile with stable vital signs. She had a white blood cell count, which was normal. She was noted to be anemic with a hemoglobin 11.6 with an MCV of 75. Electrolytes, BUN, and creatinine were normal. She had a C-reactive protein of 46 and a beta-hCG was negative. Lactic acid was 1.0. She underwent a right upper quadrant abdominal ultrasound, which shows mild several small gallstones with no evidence of gallbladder wall thickening, pericholecystic fluid or findings to suggest acute calculus cholecystitis. She also underwent a transvaginal ultrasound. This showed no free pelvic fluid. There were some complex structures in bilateral ovaries with some slight enlargement in the ovaries, but normal vascular flow seen in both with no evidence of torsion. These were hypoechoic lesions and [employer]PECTOR followup was recommended. I see no history of previous ovarian imaging. Subsequent to this, she underwent a CT scan of the abdomen and pelvis with both oral and IV contrast. These showed the bilateral ovarian masses as described above but also in addition shows an appendix at the upper normal limits at 7 mm with mild surrounding inflammatory change and some slightly enlarged lower quadrant lymph nodes concerning for early acute appendicitis. No extraluminal air, fluids, or abscess was noted. The patient has been admitted to the surgical service for further evaluation and care. PAST MEDICAL HISTORY: Migraine headaches. PAST SURGICAL HISTORY: Past abdominal surgery is none. MEDICATIONS: At home include: 1. Lexapro 10 mg daily. 2. Ibuprofen p.r.n. 3. Multivitamins. 4. Vitamin D. ALLERGIES: She has no known drug allergies. SOCIAL HISTORY: She is . She has 3 young children. She works and goes to school. Denies alcohol or tobacco use. REVIEW OF SYSTEMS: Otherwise unremarkable. PHYSICAL EXAMINATION GENERAL: She is a well-developed, slightly overweight female with normal attention to grooming. She is very pleasant and in no apparent distress. VITAL SIGNS: Temperature 97.9, pulse 70, blood pressure 109/69. LUNGS: Clear to auscultation with normal respiratory effort. HEART: Regular rate and rhythm without murmurs, rubs or gallops. ABDOMEN: Soft, slightly distended. She has hyperactive bowel sounds throughout. There are no prior surgical incisions or hernias. She has exquisite tenderness with voluntary guarding in the right lower quadrant. There is no right upper quadrant pain. I appreciate no suprapubic or left pelvic or right pelvic discomfort other than some mild discomfort in the right lower pelvis area. IMPRESSION: Right lower quadrant abdominal pain of 24 hours duration. She has a normal white count and no fever. Gallbladder ultrasound and vaginal ultrasound as described above. She does have some enlarged ovaries bilaterally and I see no previous imaging. She appears to be chronically anemic. She has no symptoms of left-sided abdominal pain and I believe that the ovarian findings are incidental and will require further workup. The concerning finding obviously is the CT scan with some inflammation surrounding the appendix and in conjunction with her exquisite right lower quadrant abdominal pain, I do believe that she has early acute appendicitis. I discussed all of these findings with her and I do recommend that she undergo a laparoscopic appendectomy today for treatment of her acute appendicitis. We discussed nonoperative management and at this point I do not recommend such an early course as she most likely could undergo surgery today and be discharged later if this is done at a reasonable hour. After our discussion, she would agree to proceed with surgery. PLAN: Laparoscopic appendectomy today. Procedure was discussed with the patient and the risks of, but not limited to, bleeding, infection, intraabdominal abscess formation, injury to peritoneal and retroperitoneal structures, possibly of an open procedure, possibility of other indicated surgical procedures necessary to be performed were discussed. In addition, the risks of blood clots and risks of general anesthesia were explained. 1. The patient has been admitted to the surgical service on the short stay unit. 2. She will be kept n.p.o. 3. IV antibiotics have been started. [id number]/[facility] #: [id number] [facility] HOSPITALChris
[2019-07-31] MEDS ORDERED: Bupivacaine 0.25% EPI 200,000* 30 ML SDV ONE (10:48)
[2019-07-31] MEDS ORDERED: ceFOXitin(*) 1 GM VIAL ONE (10:48)
[2019-07-31] MEDS ORDERED: Sodium Citrate/Citric Acid* 15 ML UDC ONE (10:51)
[2019-07-31] MEDS ORDERED: Lidocaine 2% PF * 5 ML VIAL ONE (10:57)
[2019-07-31] MEDS ORDERED: Propofol* 10 MG/ML 20 ML BTL ONE (10:57)
[2019-07-31] MEDS ORDERED: Rocuronium* 10 MG/ML VIAL ONE (10:58)
[2019-07-31] MEDS ORDERED: fentaNYL* 50 MCG/ML 2 ML VIAL (100 MCG VIAL) ONE ×4 (11:00→12:40)
[2019-07-31] MEDS ORDERED: ceFOXitin(*) 2 GM in NS 0.9% 100 ML* 100 ML IVPB ONE (11:00)
[2019-07-31] MEDS ORDERED: ceFOXitin(*) 2 GM in NS 0.9% 50 ML* 50 ML IVPB ONE (11:00)
[2019-07-31] MEDS ORDERED: Sugammadex * 200 MG/2 ML VIAL IV PUSH ONE (11:37)
[2019-07-31] MEDS ORDERED: Naloxone* 0.4 MG/ML 1 ML VIAL IV PRN (12:05)
[2019-07-31] MEDS: fentaNYL* 50 MCG/ML 2 ML VIAL (100 MCG VIAL) IV PRN ×4 (12:10→12:28)
[2019-07-31] MEDS ORDERED: diPHENhydraMINE IV* 50 MG/ML 1 ml VIAL (BENADRYL) ONE (12:48)
[2019-07-31] MEDS: HYDROcodone/ACETAMIN 5-325 MG* 1 TAB PO PRN ×2 (15:28→20:44)
[2019-07-31] MEDS ORDERED: Ondansetron INJ* 2 MG/ML VIAL IV PRN (15:45)
[2019-07-31] MEDS ORDERED: Ondansetron INJ* 2 MG/ML VIAL ONE (15:46)
[2019-07-31] MEDS: Ibuprofen TAB* 600 MG PO SCH ×2 (17:30→23:26)
--- NOTE | 2019-07-31 17:50 | BRIEFOPN ---
Brief Operative/Procedure Note - Operation Details Pre-Op Diagnosis: acute appendicitis Post-Op Diagnosis: same Procedures: laparoscopic appendectomy Surgeon(s)/Proceduralists: Nila Anesthesia: ELLA LEE Estimated Blood Loss: >10ML Findings: EARLY APPENDICITIS Specimen(s)/Culture(s) Description: APPENDIX Complications: NONE
--- NOTE | 2019-08-01 00:34 | OP ---
CC: Dr. Jose Ellis * DATE OF OPERATION: 07/31/19 - ROOM #331 DATE OF : 82 SURGEON: Alexis Dotson MD CARD CLOTHIER: None. ANESTHESIOLOGIST: Dr. Munson. ANESTHESIA: General endotracheal. PRE-OP DIAGNOSIS: Acute appendicitis. POST-OP DIAGNOSIS: Acute appendicitis. OPERATIVE PROCEDURE: Laparoscopic appendectomy. ESTIMATED BLOOD LOSS: Minimal. IV FLUIDS: Crystalloid. SPECIMEN: Appendix. DRAINS: None. COMPLICATIONS: None. COUNTS: Instrument, needle, and sponge counts were correct. DESCRIPTION OF PROCEDURE: The patient was brought to the operating room and placed on table supine. Sequential compression devices were placed on both lower extremities and intravenous antibiotics were administered. She was administered general anesthesia. She was prepped and draped in usual sterile fashion. Time-out was performed. Local anesthetic was infiltrated into the skin and soft tissue prior to making each incision. Entry to the abdomen was through a transumbilical incision using an open technique. A 12-mm trocar was placed. Carbon dioxide was insufflated to a pressure of 15 mmHg. Under direct visualization, 5-mm trocars were placed in the suprapubic midline and also in the left lower quadrant. The appendix was identified. It appeared to be early acute appendicitis. The appendix was elevated. A window created in the mesentery of the appendix at the base. The appendix was divided from the cecum with an Endo BENJAMIN stapler with the munguia cartridge and then the mesentery of the appendix was divided with the Endo BENJAMIN stapler with the tyler cartridge. The appendix was retrieved using endoscopic retrieval bag. Hemostasis was assured and staple lines were noted to be intact. The ports were removed under direct visualization and carbon dioxide was released. Umbilical wound was closed with 0 Vicryl in figure-of- eight fashion to approximate the fascia. Skin was closed with 4-0 Monocryl in a subcuticular fashion. DermaFlex was applied to the sites. The patient tolerated the procedure well, was extubated and transferred to the recovery room in stable condition. [id number]/[facility] #: [id number] [facility]
[2019-08-01] MEDS: Ibuprofen TAB* 600 MG PO SCH ×2 (05:35→11:52)
[2019-08-01] MEDS ORDERED: Influenza VAC *QUAD* 2019-20* 0.5 ML SYRINGE IM ONE (09:00)
[2019-08-01] MEDS: HYDROcodone/ACETAMIN 5-325 MG* 1 TAB PO PRN (09:05)
[2019-08-01] MEDS ORDERED: diPHENhydraMINE PO* 25 MG PO ONE (11:00)
[2019-08-01 11:21] VITALS: BP 121/71
--- NOTE | 2019-08-01 11:47 | PN ---
Progress Note - Progress Note Date of Service: 08/01/19 Note: S: POD #1. c/o central abd pain. Good effect between ibuprofen and [place]. Also c /o some itching this a.m. Received Benadryl. Angelic diet; no N/V. Passing flatus, but no BM yet. Ambulating. O: Vital Signs - 8 hr 08/01/19 08/01/19 08/01/19 05:54 07:17 08:00 Temperature 97.9 F Pulse Rate 70 Respiratory 16 17 Rate Blood Pressure 107/53 (mmHg) O2 Sat by Pulse 99 98 98 Oximetry 08/01/19 08/01/19 08/01/19 09:05 10:38 11:20 Temperature 97.7 F Pulse Rate 66 Respiratory 17 17 16 Rate Blood Pressure 121/71 (mmHg) O2 Sat by Pulse 100 Oximetry Intake and Output Last 24 Hours 07/30/19 07/31/19 08/01/19 08/02/19 06:59 06:59 06:59 06:59 Intake Total 2099 2872 Output Total 900 Balance 2099 1972 Weight 200 lb Intake: IV Fluids 2099 2032 NS (0.9%) 1932 NS 100ML, Cefoxitin 2G 100 Oral 840 Output: Urine 900 Other: Estimated Void Medium # Voids 1 Gen: lying in bed; appears mildly uncomfortable Heart: reg Lungs: clear Abd: +BS; lap sites clean and dry; soft; moderate tenderness around umbilical incision; somewhat less tenderness at suprapubic incision A: s/p lap appy for early acute appendicitis, improving P: ok for d/c home; instructions reviewed
--- NOTE | 2019-08-01 12:20 | DS ---
CC: Dr. Ellis at [facility] * DISCHARGE SUMMARY: DATE OF ADMISSION: 07/31/19 DATE OF DISCHARGE: 08/01/19 ATTENDING SURGEON: Dr. Alexis Dotson *(NOHEMI Sandoval, dictating). HOSPITAL COURSE: Please refer to admission history and physical and operative note for details. The patient was taken to the operating room on 07/31/19 and underwent laparoscopic appendectomy for acute early nonruptured appendicitis with Dr. Dotson. Surgery itself was unremarkable. However, the patient did have significant pain postoperatively and was admitted overnight for pain control. She initially required IV Dilaudid, but this was subsequently stopped because of central nervous system effects. Thereafter, her pain was reasonably controlled with oral ibuprofen and [place]. As of the morning of discharge, she is afebrile and vital signs stable. She is tolerating diet. See separate progress note from the same date. IMPRESSION: Status post laparoscopic appendectomy, improved. PLAN: Home today. Instructions reviewed regarding wound care, diet, and activity. She has a followup with our office scheduled for next week. A prescription was given for [place] 5/325. She is discharged to home in good condition. NOHEMI SANDOVAL [id number]/[facility] #: [id number] MTDD
== END 2019-08-01 12:30 | disposition home or self-care (01) ==
LOC: ED 18:44 → SSU 07-31 03:57
PROVIDERS: ADMIT Surgery; ATTEND Surgery
DX: M54.9 Dorsalgia, unspecified (principal); R11.10 Vomiting, unspecified; Z86.73 Personal history of transient ischemic attack (TIA), and cerebral infarction without residual deficits; R55 Syncope and collapse; K35.80 Unspecified acute appendicitis; Z79.899 Other long term (current) drug therapy
CPT/HCPCS: 36415; 74177; 76705; 76830; 80053; 81003; 81015; 83605; 83690; 84702; 85025; 86140; 87086; 88304; 90471; 90686; 96365; 96375; 96376; 99284; A9270-GY; C1776; G0008; G0378; J0694; J1170; J1200; J2270; J2405; J2543; J2704; J3010; Q9967

== ENCOUNTER 2024-01-18 17:19 | Observation (INO) ==
[2024-01-18 18:00] LABS: ABS Lymphocytes 1.4 10^3/uL (1.0-4.8); ABS Monocytes 0.4 10^3/uL (0.0-0.9); ABS Neutrophils 5.7 10^3/uL (1.5-7.6); Eosinophil % 0.1 %; Hematocrit 36.2 % (35-45); Hemoglobin 12.1 g/dL (11.5-14.3); Lymphocyte % 18.1 %; Mean Corpuscular Hemoglobin 27.1 pg (27-33); Mean Corpuscular Hgb Conc 33.5 g/dL (31-36); Mean Corpuscular Volume 80.9 fL (80-97); Mean Platelet Volume 8.8 fL (7.5-11.2); Platelet Count 190 10^3/uL (150-450); Red Blood Count 4.48 10^6/uL (3.63-4.92); Red Cell Distribution Width 14.9 % (12-17); White Blood Count 7.5 10^3/uL (3.8-11.8)
[2024-01-18 18:02] LABS: Urine Appearance Clear; Urine Bilirubin Negative (Negative); Urine Blood Negative (Negative); Urine Color Yellow; Urine Glucose Negative (Negative); Urine Ketones Negative (Negative); Urine Nitrite Negative (Negative); Urine Protein Negative (Negative); Urine Specific Gravity 1.016 (1.002-1.030); Urine Urobilinogen Negative (Negative)
[2024-01-18 18:04] LABS: Urine Bacteria 1+ /HPF (Absent); Urine Red Blood Cell Absent /HPF (0-Trace); Urine Squamous Epithelial Cell Present /HPF (Absent); Urine White Blood Cell Trace(0-5/hpf) /HPF (0-Trace)
[2024-01-18 18:19] LABS: INR 1.24 (0.83-1.13)
[2024-01-18 18:24] LABS: High Sens Troponin Baseline < 3 pg/mL (<15)
[2024-01-18 18:33] LABS: ALT 37 U/L (7-52); AST 17 U/L (13-39); Albumin 4.2 g/dL (3.2-5.2); Albumin/Globulin Ratio 1.3 (1-3); Alkaline Phosphatase 86 U/L (35-149); Anion Gap 9 mmol/L (2-16); Blood Urea Nitrogen 9 mg/dL (6-24); C Reactive Protein 151.66 mg/L (<8.01); CO2 Carbon Dioxide 24 mmol/L (22-32); Calcium 9.4 mg/dL (8.6-10.3); Chloride 103 mmol/L (101-111); Creatinine, Serum 0.71 mg/dL (0.51-0.95); Globulin 3.2 g/dL (2-4); Glucose 137 mg/dL (70-100); Lipase 36 U/L (11.0-82.0); Potassium 3.9 mmol/L (3.5-5.0); Sodium 136 mmol/L (135-145); Total Bilirubin 0.5 mg/dL (0.2-1.0); Total Protein 7.4 g/dL (6.4-8.9); eGFR CKD-EPI 108.8 (>60)
[2024-01-18 18:39] LABS: HCG Pregnancy < 0.60 mIU/mL
[2024-01-18 19:15] LABS: High Sensitivity Troponin 1 Hr 4 pg/mL (<15)
[2024-01-18] MEDS: Iohexol 350 (CONTRAST) 500 ML MDV IV ONE (20:57)
[2024-01-18] MEDS: Morphine 4 MG/ML VIAL (1 ml) IV ONE (21:10)
[2024-01-18] MEDS: Ondansetron 4 mg VIAL 2 MG/ML 2 ml VIAL IV ONE (21:10)
[2024-01-18] MEDS: Lactated Ringers 1000 ml BAG 1,000 ML IV ONE (22:35)
[2024-01-19] MEDS: Piperacillin/Tazobac 3.375 BAG 3.375 GM/100 ML BAG IV ONE (00:08)
[2024-01-19] MEDS: NS 0.9% 1000 ml BAG 1,000 ML IV SCH (00:08)
[2024-01-19] MEDS: Lactated Ringers 1000 ml BAG 1,000 ML IV ONE (00:39)
[2024-01-19] MEDS: HYDROmorphone 1 MG/1 ML SYRINGE IV SLOW PU PRN (02:49)
[2024-01-19] MEDS: Piperacillin/Tazobac 3.375 BAG 3.375 GM/100 ML BAG IV SCH (04:07)
[2024-01-19 05:59] LABS: ABS Lymphocytes 1.2 10^3/uL (1.0-4.8); ABS Monocytes 0.6 10^3/uL (0.0-0.9); ABS Neutrophils 5.1 10^3/uL (1.5-7.6); ABS Nucleated RBC 0.01 10^3/ul; Hematocrit 31.6 % (35-45); Hemoglobin 10.9 g/dL (11.5-14.3); Lymphocyte % 17.6 %; Mean Corpuscular Hemoglobin 27.6 pg (27-33); Mean Corpuscular Hgb Conc 34.5 g/dL (31-36); Mean Corpuscular Volume 80.2 fL (80-97); Mean Platelet Volume 8.6 fL (7.5-11.2); Nucleated Red Blood Cells % 0.1 %/100WBC (0.0-0.8); Platelet Count 172 10^3/uL (150-450); Red Blood Count 3.94 10^6/uL (3.63-4.92); White Blood Count 6.9 10^3/uL (3.8-11.8)
[2024-01-19 06:42] LABS: Albumin 3.6 g/dL (3.2-5.2); Albumin/Globulin Ratio 1.3 (1-3); Calcium 8.6 mg/dL (8.6-10.3); Creatinine, Serum 0.71 mg/dL (0.51-0.95); Globulin 2.7 g/dL (2-4); Potassium 3.4 mmol/L (3.5-5.0); Total Bilirubin 1.1 mg/dL (0.2-1.0); Total Protein 6.3 g/dL (6.4-8.9); eGFR CKD-EPI 108.8 (>60)
[2024-01-19] MEDS: Ondansetron 4 mg VIAL 2 MG/ML 2 ml VIAL IV PRN ×2 (08:47→14:58)
[2024-01-19] MEDS ORDERED: HYDROmorphone 1 MG/1 ML SYRINGE ONE (10:27)
[2024-01-19] MEDS ORDERED: Rocuronium 50 mg VIAL 10 mg/ml 5 ml VIAL (50 mg) ONE (11:51)
[2024-01-19] MEDS ORDERED: fentaNYL 100 mcg/2 ml 50 MCG/ML VIAL ONE (11:51)
[2024-01-19] MEDS ORDERED: Midazolam 2 mg/2 ml VIAL 1 mg/ml 2 ml VIAL (2 mg) ONE (11:51)
[2024-01-19] MEDS ORDERED: Ondansetron 4 mg VIAL 2 MG/ML 2 ml VIAL ONE ×2 (11:53→14:57)
[2024-01-19] MEDS ORDERED: Propofol 10 MG/ML 20 ML BTL ONE (11:53)
[2024-01-19] MEDS ORDERED: Lidocaine 2% PF 5 ML VIAL ONE (11:53)
[2024-01-19] MEDS ORDERED: Dexamethasone IV 4 MG/ML VIAL 1 ml VIAL ONE (11:53)
[2024-01-19] MEDS ORDERED: fentaNYL 100 mcg/2 ml 50 MCG/ML VIAL IV PRN (12:52)
[2024-01-19] MEDS ORDERED: Naloxone 0.4 mg VIAL 0.4 mg/ml 1 ml VIAL IV PRN (12:52)
[2024-01-19] MEDS ORDERED: HYDROmorphone 1 MG/1 ML SYRINGE IV PRN (12:52)
[2024-01-19] MEDS ORDERED: Acetaminophen IV 1 GM/100ML 1,000 MG/100 ML BAG IV PRN (12:52)
[2024-01-19 16:12] VITALS: BP 139/92
== END 2024-01-19 16:15 | disposition home or self-care (01) ==
LOC: EDHOLD 17:19 → ED 17:19 → AA 01-19 09:23
PROVIDERS: ADMIT Surgery; ATTEND Surgery